=== PATIENT | female | born 1970 | race Caucasian/White ===

== ENCOUNTER 2018-02-14 12:34 | Outpatient (REF) | payer BC, SELFPAY ==
--- NOTE | 2018-02-14 11:30 | PAPFT_PTH ---
PATIENT: Kelley Tomas LOC: [facility] U#:[id number] AGE/SX: 47/F ROOM: RE02/14/[address]: ADRIENNE Snider : 1970 BED: DIS: 02/14/2018 SPEC #: [id number] RECD: 02/14/18 13:02 STATUS: JUSTO FUCHS #: [id number] TIMOTHY: 02/14/18 11:[address]: Yasemin Barbosa DEPT: [facility] Cytology RECD BY: Inga Livingston ENTERED: 02/14/18 13:02 SP TYPE: PAPFT SHEILA DR: Kodak Jauregui MD Tissues: 1 - CX/ENDOCX FOR PAP SMEARS Procedures: PAP THIN PREP/UVM Screening HPV DNA PROBE Comments: [id number]
== END 2018-02-14 12:54 ==
LOC: LBN 12:34
PROVIDERS: PCP Family Medicine; Visit Provider Nurse Practitioner Family
DX: Z12.4 Encounter for screening for malignant neoplasm of cervix (principal); Z11.51 Encounter for screening for human papillomavirus (HPV)
CPT/HCPCS: 88142; 87624

== ENCOUNTER 2018-03-07 00:23 | Outpatient (CLI) | payer BC, SELFPAY ==
--- NOTE | 2018-03-07 12:20 | DI.MAMMO_ITS ---
SYMPTOM/DIAGNOSIS: SCREENING, Z12.31 PREVENTATIVE CARE Z00.00 MAMMOGRAMS: Mammograms were interpreted according to the usual protocol including computer analysis with CAD system, tomosynthesis and C view imaging. Comparison with prior examinations. No masses or microcalcifications are seen. There is nothing to suggest malignancy. Breast density B. IMPRESSION: Category 1-B. Negative mammogram. Routine screening is recommended. [facility] ASSESSMENT OF FINDINGS: Negative. Category 1. Patient will receive a letter notifying them of these results. BI-RADS category B. There are scattered areas of fibroglandular density.
== END 2018-03-07 00:43 ==
PROVIDERS: PCP Family Medicine; Visit Provider Nurse Practitioner Family
DX: Z00.00 Encounter for general adult medical examination without abnormal findings (principal); Z12.31 Encounter for screening mammogram for malignant neoplasm of breast
CPT/HCPCS: 77063; 77067

== ENCOUNTER 2019-07-06 01:44 | Outpatient (CLI) | payer OTHER, SELFPAY ==
--- NOTE | 2019-07-06 08:30 | DI.MAMMO_ITS ---
EXAM: MG MAMMO SCREENING CLINICAL HISTORY: Screening,z12.39 TECHNIQUE: Bilateral full field digital CC and MLO mammographic images were obtained with 3D tomosyn thesis and utilizing computer aided detection (CAD). COMPARISON: Available for comparison. FINDINGS: Masses/Architectural Distortion: There is an asymmetric density in the outer left breast with a quest ion of architectural distortion. No associated microcalcifications are seen. Microcalcifications: No suspicious pleomorphic-type are seen. Skin Thickening/Nipple Retraction: None. IMPRESSION: 1. Asymmetric density in the outer left breast seen on the craniocaudad view. 2. Further evaluation with a spot compression view and ultrasound are recommended. BI-RADS Cat 0 - Assessment Incomplete: Need additional imaging evaluation Breast Density - Category B - Scattered areas of fibroglandular density A negative radiographic report should not delay biopsy if a dominant or clinically suspicious mass is present. Up to ten percent of cancers are not identified on mammography. A negative report may reinforce clinical impression. Adenosis and dense breasts may obscure an underlying neoplasm. False positive reports average 6 to 10%. Patient will receive a letter notifying them of these results.
== END 2019-07-06 02:04 ==
PROVIDERS: PCP Family Medicine; Visit Provider Nurse Practitioner Family
DX: Z12.31 Encounter for screening mammogram for malignant neoplasm of breast (principal); R92.8 Other abnormal and inconclusive findings on diagnostic imaging of breast
CPT/HCPCS: 77063; 77067

== ENCOUNTER 2019-07-12 03:01 | Outpatient (CLI) | payer OTHER, SELFPAY ==
--- NOTE | 2019-07-12 10:19 | DI.MAMMO_ITS ---
EXAM: MG MAMMO SCREEN CALL BACK UNI CLINICAL HISTORY: F/U MAMMO, ASYMMETRIC DENSITY LT BREAST TECHNIQUE: Spot compression CC and MLO mammographic images were obtained with 3D tomosynthesis were performed COMPARISON: 2011 through 06 July 2019. FINDINGS: Masses/Architectural Distortion: None seen. Microcalcifications: No suspicious pleomorphic-type are seen. Skin Thickening/Nipple Retraction: None. IMPRESSION: 1. No significant interval change with no specific features of malignancy noted. 2. Unless there is more urgent need, screening mammography is recommended, as per [employer] guidelines. BI-RADS Cat 1 - Negative Breast Density - Category B - Scattered areas of fibroglandular density A negative radiographic report should not delay biopsy if a dominant or clinically suspicious mass is present. Up to ten percent of cancers are not identified on mammography. A negative report may reinforce clinical impression. Adenosis and dense breasts may obscure an underlying neoplasm. False positive reports average 6 to 10%. Patient will receive a letter notifying them of these results.
== END 2019-07-12 03:21 ==
PROVIDERS: PCP Family Medicine; Visit Provider Nurse Practitioner Family
DX: Z12.31 Encounter for screening mammogram for malignant neoplasm of breast (principal); R92.8 Other abnormal and inconclusive findings on diagnostic imaging of breast; N64.59 Other signs and symptoms in breast
CPT/HCPCS: 77063; 77067

== ENCOUNTER 2020-07-29 10:13 | Outpatient (REF) | payer BC, SELFPAY ==
--- NOTE | 2020-07-29 10:00 | PAPFT_PTH ---
PATIENT: Kelley Tomas LOC: [facility] U#:[id number] AGE/SX: 49/F ROOM: RE07/29/[address]: ADRIENNE Snider : 1970 BED: DIS: 07/29/2020 SPEC #: [id number] RECD: 07/29/20 18:15 STATUS: JUSTO RETyrell #: [id number] TIMOTHY: 07/29/20 10:[address]: Yasemin Barbosa DEPT: [facility] Cytology RECD BY: Inga Livingston ENTERED: 07/29/20 18:15 SP TYPE: PAPFT OTHR DR: ADRIENNE Chacon Tissues: 1 - CX/ENDOCX FOR PAP SMEARS Procedures: PAP THIN PREP/UVM Screening HPV DNA PROBE Comments: [id number]
== END 2020-07-29 10:14 | disposition home or self-care (01) ==
LOC: LBN 10:13
PROVIDERS: PCP Nurse Practitioner Family; Visit Provider Nurse Practitioner Family
DX: Z12.4 Encounter for screening for malignant neoplasm of cervix (principal); Z11.51 Encounter for screening for human papillomavirus (HPV); R87.810 Cervical high risk human papillomavirus (HPV) DNA test positive
CPT/HCPCS: 88142; 87624

== ENCOUNTER 2020-08-06 02:12 | Outpatient (CLI) | payer BC, SELFPAY ==
--- NOTE | 2020-08-06 11:51 | DI.MAMMO_ITS ---
EXAM: MAMMO SCREENING CLINICAL HISTORY: screening,Z12.39 TECHNIQUE: Mammograms were interpreted according to the usual protocol including computer analysis w [employer] PTY CAD system, tomosynthesis and C-view imaging. COMPARISON: FINDINGS: The breasts are of moderate density with fairly symmetrical distribution of fibroglandular tissue. N o dominant mass or clumped microcalcification is identified in either breast. Current examination is compared with previous examinations including July 2019 and there has been no gross interval change in appearance in comparison with the prior studies. IMPRESSION: No specific evidence of malignancy at this time. Routine screening examinations are suggested at yea rly intervals in this age group according to the ACS ACR guidelines. BI-RADS Category 1 - Negative Breast Density - Category B - Scattered areas of fibroglandular density
== END 2020-08-06 02:32 ==
PROVIDERS: PCP Nurse Practitioner Family; Visit Provider Nurse Practitioner Family
DX: Z12.31 Encounter for screening mammogram for malignant neoplasm of breast (principal)
CPT/HCPCS: 77063; 77067

== ENCOUNTER 2021-06-19 19:53 | Outpatient (REF) | payer BC, SELFPAY | END 2021-06-19 19:54 | disposition home or self-care (01) | LOC: LBN 19:53 | PROVIDERS: PCP Nurse Practitioner Family; Visit Provider Nurse Practitioner Family | DX: R30.0 Dysuria (principal) | CPT/HCPCS: 87086 ==

== ENCOUNTER 2021-07-31 10:33 | Outpatient (REF) | payer BC, SELFPAY ==
--- NOTE | 2021-07-31 09:15 | PAPFT_PTH ---
PATIENT: Kelley Tomas LOC: [facility] U#:[id number] AGE/SX: 50/F ROOM: RE07/31/[address]: ADRIENNE Snider : 1970 BED: DIS: 07/31/2021 SPEC #: [id number] RECD: 07/31/21 12:45 STATUS: JUSTO REQ #: [id number] TIMOTHY: 07/31/21 09:[address]: Yasemin Barbosa DEPT: [facility] Cytology RECD BY: Inga Livingston ENTERED: 07/31/21 12:45 SP TYPE: PAPFT OTHR DR: ADRIENNE Chacon Tissues: 1 - CX/ENDOCX FOR PAP SMEARS Procedures: PAP THIN PREP/UVM Screening HPV DNA PROBE Comments: [id number]
== END 2021-07-31 10:34 | disposition home or self-care (01) ==
LOC: LBN 10:33
PROVIDERS: PCP Nurse Practitioner Family; Visit Provider Nurse Practitioner Family
DX: Z12.4 Encounter for screening for malignant neoplasm of cervix (principal); Z11.51 Encounter for screening for human papillomavirus (HPV); Z87.42 Personal history of other diseases of the female genital tract; Z97.5 Presence of (intrauterine) contraceptive device
CPT/HCPCS: 88142; 87624

== ENCOUNTER → 2021-08-29 01:03 | Outpatient (CLI) | payer BC, SELFPAY ==
--- NOTE | 2021-08-29 08:30 | DI.MAMMO_ITS ---
Exam(s) MAMMO SCREENING EXAM: MAMMO SCREENING CLINICAL HISTORY: screening TECHNIQUE: Mammograms were interpreted according to the usual protocol including computer analysis w [employer] CAD system, tomosynthesis and C-view imaging. COMPARISON: 2012 through 2020 FINDINGS: The breasts are composed of scattered fibroglandular densities, Breast Density category B. No suspicious masses or suspicious microcalcifications are seen. No skin thickening or abnormal axillary lymph nodes are seen. There has been no significant change from prior exams. IMPRESSION: BI-RADS Category 1, Negative mammogram Yearly screening mammography is recommended. Breast Density - Category B, scattered fibroglandular densities. A negative radiographic report should not delay biopsy if a dominant or clinically suspicious mass is present. Up to ten percent of cancers are not identified on mammography. A negative report may reinforce clinical impression. Adenosis and dense breasts may obscure an underlying neoplasm. False positive reports average 6 to 10%. Patient will receive a letter notifying them of these results.
== END ==
PROVIDERS: PCP Nurse Practitioner Family; Visit Provider Nurse Practitioner Family
DX: Z12.31 Encounter for screening mammogram for malignant neoplasm of breast (principal)
CPT/HCPCS: 77063; 77067

== ENCOUNTER 2023-02-24 15:01 | Outpatient (CLI) | payer BC, SELFPAY ==
--- OUTSIDE RECORDS SUMMARY | 2023-02-24 15:03 | XMS_ITS | Continuity of Care Document ---
Author Name Unknown Organization [facility] Address [address] [place] [id number] Care Team Providers Care [employer] Name Role Phone YURIY FAUTS, RAVINDER Hoffmann Primary Care Physician Encounter [facility] FIN NBR [id number] Date(s): 02/03/23 - 02/03/[address] [phone] [phone] Discharge Disposition: Home or Self Care Attending Physician: RAVINDER YAN MD Admitting Physician: RAVINDER YAN MD Referring Physician: RAVINDER YAN MD Assessment and Plan Future Scheduled Tests Laboratory* Comprehensive Metabolic Panel 02/03/23 * Thyroid Stimulating Hormone 02/03/23 Results Laboratory List Name Date CBC w/ Diff 02/03/23 Comprehensive Metabolic Panel 02/03/23 Hgb A1c 02/03/23 Thyroid Stimulating Hormone 02/03/23 Automated Diff 02/03/23 Most recent to oldest [Reference Range]: 1 WBC [4.8-10.8 K/mcL] 4.8 K/mcL (02/03/23 10:14 AM) RBC [4.20-5.40 Million/mcL] 4.44 Million /mcL (02/03/23 10:14 AM) Neutro Auto [42.2-75.2 %] 41.4 % *LOW* (02/03/23 10:14 AM) Lymph Auto [20.5-51.1 %] 41.4 % (02/03/23 10:14 AM) [place] Auto [1.7-9.3 %] 7.1 % (02/03/23 10:14 AM) Basophil Auto [0.0-0.8 %] 1.3 % *HI* (02/03/23 10:14 AM) BUN [8-26 mg/dL] 14 mg/dL (02/03/23 10:14 AM) Glucose Level [74-106 mg/dL] 95 mg/dL (02/03/23 10:14 AM) Potassium Level [3.5-5.1 mmol/L] 4.5 mmo l/L (02/03/23 10:14 AM) Baso Absolute [0.0-0.2 K/mcL] 0.1 K/mcL (02/03/23 10:14 AM) MCV [81.0-99.0 fL] 95.3 fL (02/03/23 10:14 AM) AST [15-41 IntlUnit/L] 17 IntlUnit/L (02/03/23 10:14 AM) ALT [14-54 IntlUnit/L] 21 IntlUnit/L (02/03/23 10:14 AM) MCHC [32.0-36.0 g/dL] 32.9 g/dL (02/03/23 10:14 AM) Osmolality [275-295 mOsm/kg] 276 mOsm/kg (02/03/23 10:14 AM) Sodium Level [134-143 mmol/L] 138 mmol/L (02/03/23 10:14 AM) Lymph Absolute [1.2-3.4 K/mcL] 2.0 K/mcL (02/03/23 10:14 AM) Hct [37.0-47.0 %] 42.3 % (02/03/23 10:14 AM) Calcium Level [8.9-10.3 mg/dL] 9.4 mg/dL (02/03/23 10:14 AM) [place] Absolute [0.1-0.6 K/mcL] 0.3 K/mcL (02/03/23 10:14 AM) Albumin Level [3.5-5.0 g/dL] 4.1 g/dL (02/03/23 10:14 AM) Protein Total [6.5-8.1 g/dL] 7.3 g/dL (02/03/23 10:14 AM) MCH [27.0-31.0 pg] 31.3 pg *HI* (02/03/23 10:14 AM) Neutro Absolute [1.4-6.5 K/mcL] 2.0 K/mc L (02/03/23 10:14 AM) Bilirubin Total [0.2-1.2 mg/dL] 0.6 mg/d L (02/03/23 10:14 AM) Hgb [12.0-16.0 g/dL] 13.9 g/dL (02/03/23 10:14 AM) Alk Phos [38-130 IntlUnit/L] 69 IntlUnit /L (02/03/23 10:14 AM) MPV [7.4-10.4 fL] 9.0 fL (02/03/23 10:14 AM) Platelets [130-400 K/mcL] 290 K/mcL (02/03/23 10:14 AM) CO2 [22-32 mmol/L] 28 mmol/L (02/03/23 10:14 AM) Eos Absolute [0.0-0.2 K/mcL] 0.4 K/mcL *HI* (02/03/23 10:14 AM) TSH [0.45-5.33 mcIntlUnit/mL] 1.77 mcInt lUnit/mL (02/03/23 10:14 AM) eAvg Glucose [70-105 mg/dL] 103 mg/dL (02/03/23 10:14 AM) Chloride Level [98-111 mmol/L] 102 mmol/ L (02/03/23 10:14 AM) RDW-CV [11.5-14.5 %] 12.3 % (02/03/23 10:14 AM) A/G Ratio [1.0-2.5 g/dL] 1.3 g/dL (02/03/23 10:14 AM) BUN/Creat Ratio [8.0-20.0] 17.9 (02/03/23 10:14 AM) Globulin [2.3-3.5 g/dL] 3.2 g/dL (02/03/23 10:14 AM) Imm Gran Absolute [0.00-0.02 K/mcL] 0.01 K/mcL (02/03/23 10:14 AM) Imm Gran Auto [0.0-0.5 %] 0.2 % (02/03/23 10:14 AM) Hgb A1c Percent [4.0-6.0 %] 5.2 % (02/03/23 10:14 AM) .Hb 15.1 g/dL *NA* (02/03/23 10:14 AM) .Hgb A1c 0.5 g/dL *NA* (02/03/23 10:14 AM) Creatinine Level [0.44-1.00 mg/dL] 0.78 mg/dL (02/03/23 10:14 AM) Anion Gap [3.0-12.0] 8.0 (02/03/23 10:14 AM) Eos, Auto [0.00-3.00 %] 8.60 % *HI* (02/03/23 10:14 AM) eGFR CKD-EPI [>=60 mL/min/1.73 m2] 92 mL /min/1.73 m2 (02/03/23 10:14 AM) Patient Care team information Care Team Personnel Name: YURIY FAUST, RAVINDER Hoffmann Position: No Access Member Role: Primary Care Physician Address: Address: [address] [place] [phone]
--- OUTSIDE RECORDS SUMMARY | 2023-02-24 15:03 | XMS_ITS | Patient Health Record ---
Author Name Unknown Organization [facility] Visit Address [address], [address] [place] [address] Care Team Providers Care Test Fixture Assembler Name Role Phone Naila Yan Primary Care Provider ALLERGIES No Known Allergies RESULTS Component Value Reference Range Notes CBC, WITH AUTO DIFF Reviewed date:02/04/2023 08:39:37 AM Interpretation: Performing Lab: Notes/Report: COMPREHENSIVE METABOLIC PROF ILE Reviewed date:02/04/2023 08:39:37 AM Interpretation: Performing Lab: Notes/Report: Alk Phos 69 38-130 IntlUnit/L Albumin Level 4.1 3.5-5.0 g/dL Anion Gap 8.0 3.0-12.0 BUN/Creat Ratio 17.9 8.0-20.0 Osmolality 276 275-295 mOsm/kg A/G Ratio 1.3 1.0-2.5 g/dL Globulin 3.2 2.3-3.5 g/dL GLYCOHEMOGLOBIN A1C Reviewed date:02/04/2023 08:39:37 AM Interpretation: Performing Lab: Notes/Report: Hgb A1c Percent 5.2 4.0-6.0 % TSH Reviewed date:02/04/2023 08:39:37 AM Interpretation: Performing Lab: Notes/Report: TSH 1.77 0.45-5.33 mcIntlUnit/mL - Ordering Provider: NAILA YAN REASON FOR REFERRAL No Information MEDICATIONS Medication SIG (Take, Route, Frequency, Duration) Notes Start Date End Date Status Losartan Potassium-HCTZ 100-25 MG 1 tablet Orally Once a day in the morning for 30 days 02/03/2023 Activ e Flonase Allergy Relief 50 MCG/ACT 1 spray in each nostril Nasally once a day prn for 30 days Active Tika Allergy 60 MG 1 tablet Orally Twice a day Active Ibuprofen 400 MG 1 tablet with food o r milk as needed Orally Three times a day prn Active Semaglutide-Weight Management 0.25 MG/0.5ML 0.5 mL Subcutaneous once a week for 30 days 02/04/2023 Active IMMUNIZATIONS Vaccine Route Administration Date Status Comme nts Fluarix Quadrivalent Unknown 02/03/2023 Administered SOCIAL HISTORY Tobacco Use: Social History Observation Description Date Details (start date - stop date) Never Smoker NA - NA Sex Assigned At : Social History Observation Description Sex Assigned At Unknown Tobacco Use/Smoking Question Answer Notes Are you a nonsmoker Alcohol Screen Question Answer Notes Did you have a drink contain ing alcohol in the past year? Yes How often did you have a dri nk containing alcohol in the past year? 2 to 3 times a week (3 points) How many drinks did you have on a typical day when you were drinking in the past year? 3 or 4 drinks (1 point) Points 4 Interpretation Positive PROBLEMS Problem Type ICD Code Onset Dates Problem Status W/U Status Risk SNOMED Code Notes Problem Morbid (severe) obesity due to excess calories (E66.01) Active confirmed Morbid obesity (disorder) (700587516) Problem Essential (primary) hypertension (I10) Active confirmed Essential hypertension (63129890) VITAL SIGNS Heart Rate 72 /min 02/03/2023 Blood pressure diastolic 95 mm Hg 02/03/2023 Height 68.75 in 02/03/2023 Blood pressure systolic 142 mm Hg 02/03/2023 Weight 242 lbs 02/03/2023 BMI 35.99 kg/m2 02/03/2023 Encounters Encounter Location Date Provider Diagnosis [facility] [address] [place], [place] [id number] 02/03/2023 Naila Yan Essential (primary) hypertension I10 ; Encounter for general adult medical examination with abnormal findings Z00.01 ; Morbid (severe) obesity due to excess calories E66.01 ; Plantar fascial fibromatosis M72.2 and Encounter for immunization Z23 [facility] [address] [place], [place] [id number] 05/05/2022 Naila Yan Low back pain, unspecified M54.50 [facility] [address] [place], [place] [id number] 01/26/2023 Naila Yan Essential (primary) hypertension I10 [facility] [address] [place], [place] [id number] 02/04/2023 Naila Yan ASSESSMENTS Encounter Date Diagnosis Assessment Notes Treatment Notes Treatment Clinical Notes 05/05/2022 Low back pain, unspecified (ICD-10 - M54.50) suspect muscle strain Ok to continue tylenol/ibuprofen. Can also use heat, topical analgesics. If worsening should reevaluate. 01/26/2023 Essential (primary) hypertension (ICD-10 - I10) 02/03/2023 Essential (primary) hypertension (ICD-10 - I10) Continues to be elevated. Discussed adding additional medication and potential risks/benefits. Will add hctz. Naila Yan 02/03/2023 12:12:49 PM > 02/03/2023 Encounter for general adult medical examination with abnormal findings (ICD-10 - Z00.01) need to schedule appt with gynecology. 02/03/2023 Morbid (severe) obesity due to excess calories (ICD-10 - E66.01) Discussed diet and exercise recommendations. Discussed medications to aid in weight loss including semaglutide, metformin or buproprion. Will check blood sugars which may direct options. 02/03/2023 Plantar fascial fibromatosis (ICD-10 - M72.2) 02/03/2023 Encounter for immunization (ICD-10 - Z23) PLAN OF TREATMENT Pending Test Test Name Order Date Urinalysis, Complete 05/05/2022 Insurance Providers Payer Name Payer Address Payer Phone Subscriber Number Group Number Insured Name Patient Relationship to Insured Coverage Start Date Coverage End Date [facility] [address] [place], [place] [id number] Tomas Kelley Self - patient is the insured 2 MEDICAL (GENERAL) HISTORY Medical History History ICD Code seasonal allergies essential hypertension
[2023-02-25 10:12] LABS: FSH 44.6 mIU/mL (See Note)
== END 2023-02-24 15:02 | disposition home or self-care (01) ==
LOC: LBO 15:01
PROVIDERS: Visit Provider Obstetrics & Gynecology
DX: N95.1 Menopausal and female climacteric states (principal)
CPT/HCPCS: 36415; 83001

== ENCOUNTER → 2023-02-24 15:06 | Outpatient (CLI) | payer BC, SELFPAY ==
--- NOTE | 2023-02-24 14:00 | DI.MAMMO_ITS ---
Exam(s) MAMMO SCREENING EXAM: MAMMO SCREENING CLINICAL HISTORY: screening. TECHNIQUE: Bilateral full field digital CC and MLO mammographic images were obtained with 3D tomosyn thesis and utilizing computer aided detection (CAD). COMPARISON: Prior mammograms were reviewed. FINDINGS: There are no new findings in the right breast. In the left breast on 3D MLO imaging there is a dumbbell-shaped nodular density now evident measuring 9 x 4 millimeters and located 6 cm in from the nipple on the MLO view. There are no malignant-appearing microcalcification groups in this region or elsewhere in either [address]. There is no significant architectural distortion nor skin thickening-retraction. IMPRESSION: 1. No radiographic evidence of malignancy in the right breast. 2. Left breast asymmetric hrgdgeu-brqdyupa-eqehrw nodule measuring 9 x 4 mm on the MLO 3D views. Rec ommend spot compression MLO view and ultrasound of the left breast. BI-RADS Category 0 - Assessment Incomplete: Need additional imaging evaluation Breast Density - Category B - Scattered areas of fibroglandular density Breast density Category C or D implies that the patient has dense breast tissue. Dense breast tissue can make it harder to find cancer on a mammogram. Dense breast tissue is also associated with an incr eased risk of breast cancer. This information about the result of the mammogram report was provided to the patient to raise their awareness. Use this report when you speak with the patient about their risks for breast cancer, which includes their family history. At that time, you may recommend additional screening tests (Ultrasoun d or MRI) as these tests may add significant information. A negative radiographic report should not delay biopsy if a dominant or clinically suspicious mass is present. Up to ten percent of cancers are not identified on mammography. A negative report may reinforce clinical impression. Adenosis and dense breasts may obscure an underlying neoplasm. False positive reports average 6 to 10%. Patient will receive a letter notifying them of these results.
== END ==
PROVIDERS: Visit Provider Obstetrics & Gynecology
DX: Z12.31 Encounter for screening mammogram for malignant neoplasm of breast (principal); R92.8 Other abnormal and inconclusive findings on diagnostic imaging of breast
CPT/HCPCS: 77063; 77067

== ENCOUNTER → 2023-03-02 02:23 | Outpatient (CLI) | payer BC, SELFPAY ==
--- NOTE | 2023-03-02 | DI.US_ITS ---
Exam(s) MG MAMMO SCREEN CALL BACK UNI US BREAST LT LIMITED EXAM: MG MAMMO SCREEN CALL BACK UNI and U/S breast LT limited CLINICAL HISTORY: F/U MAMMO, R92.8, NODULAR DENSITY. TECHNIQUE: Craniocaudal and mediolateral oblique Full Field Digital Mammography views of the left br east with Computer Aided Diagnosis followed by Tomosynthesis and limited left breast ultrasound. COMPARISON: Comparison is made with prior examinations. FINDINGS: Mammography/Tomosynthesis: Masses/Architectural Distortion: Additional views were obtained. There appears to be 2 well-circumsc ribed nodules adjacent to each other in the upper left breast on the MLO view. No areas of naval architect specialist ural distortion are seen. Microcalcifictions: No suspicious pleomorphic-type are seen. Skin Thickening/Nipple Retraction: None. Limited left breast US: Echotexture: Normal appearance of the glandular tissue. Shadowing: No suspicious foci. Cyst: None. Solid lesions: There is a round well-circumscribed hypoechoic nodule at the 1 o'clock position of the left breast 2 cm from the nipple. There is a 0.3 x 0.3 x 0.4 cm round anechoic nodule at the 3 o'cl ock position in the retroareolar region of the left breast. There is an adjacent 4 x 3 x 3 mm hypoec hoic nodule also in the retroareolar region. These nodules show benign characteristics sonographical ly. Ductal dilation: None. IMPRESSION: 1. No definite evidence of malignancy is noted. 2. A six-month follow-up right mammogram is requested for re-evaluation. 3. The findings were discussed with the patient on the date of the examination. BI-RADS Category 3 - 6 month - Probably Benign Finding: Recommend follow-up imaging in 6 months Breast Density - Category B - Scattered areas of fibroglandular density Breast density Category C or D implies that the patient has dense breast tissue. Dense breast tissue can make it harder to find cancer on a mammogram. Dense breast tissue is also associated with an incr eased risk of breast cancer. This information about the result of the mammogram report was provided to the patient to raise their awareness. Use this report when you speak with the patient about their risks for breast cancer, which includes their family history. At that time, you may recommend additional screening tests (Ultrasoun d or MRI) as these tests may add significant information. A negative radiographic report should not delay biopsy if a dominant or clinically suspicious mass is present. Up to ten percent of cancers are not identified on mammography. A negative report may reinforce clinical impression. Adenosis and dense breasts may obscure an underlying neoplasm. False positive reports average 6 to 10%. Patient will receive a letter notifying them of these results.
== END ==
PROVIDERS: Visit Provider Obstetrics & Gynecology
DX: Z12.31 Encounter for screening mammogram for malignant neoplasm of breast (principal); N63.21 Unspecified lump in the left breast, upper outer quadrant
CPT/HCPCS: 76642; 77063; 77067

== ENCOUNTER → 2023-09-01 04:41 | Outpatient (CLI) | payer OTHER, SELFPAY ==
--- NOTE | 2023-09-01 08:00 | DI.US_ITS ---
Exam(s) US BREAST LT COMPLETE MG MAMMO DIAGNOSTIC UNI EXAM: MG MAMMO DIAGNOSTIC UNI-LEFT AND COMPLETE LEFT BREAST ULTRASOUND. CLINICAL HISTORY: 6-month follow-up LT,R92.8,lt breast nodule. TECHNIQUE: Unilateral BREAST CC AND MLO mammographic images were obtained with 3D tomosynthesis tech [employer] and utilizing computer aided detection (CAD). COMPLETE LEFT BREAST ULTRASOUND was also performed including all 4 quadrants as well as the axillary region. COMPARISON: Prior mammograms were reviewed, the most recent being January 2023.. Prior ultrasound of January 2023 was also reviewed. FINDINGS: DIAGNOSTIC LEFT BREAST MAMMOGRAM: The previously described small nodular density is actually less evident on the present study. There are no new spiculated masses nor malignant-appearing microcalcification groups in the left breast. N o new architectural distortion or skin thickening-traction. We proceeded with ultrasound.. COMPLETE LEFT BREAST ULTRASOUND: The previously described ultrasound findings at the 1 o'clock and 3 o'clock positions are no longer s een. There is no evidence of solid or significant cystic lesions in all 4 quadrants of the left petra [address]. Graph scanning of the left axilla is negative for adenopathy. IMPRESSION: No radiographic evidence of malignancy Negative complete left breast ultrasound Appropriate follow-up is to keep this patient yearly screening mammogram schedule. The patient was informed of the findings and follow-up recommendations by myself prior to leaving the department today. BI-RADS Category 2 - Benign Findings Breast Density - Category B - Scattered areas of fibroglandular density Breast density Category C or D implies that the patient has dense breast tissue. Dense breast tissue can make it harder to find cancer on a mammogram. Dense breast tissue is also associated with an incr eased risk of breast cancer. This information about the result of the mammogram report was provided to the patient to raise their awareness. Use this report when you speak with the patient about their risks for breast cancer, which includes their family history. At that time, you may recommend additional screening tests (Ultrasoun d or MRI) as these tests may add significant information. A negative radiographic report should not delay biopsy if a dominant or clinically suspicious mass is present. Up to ten percent of cancers are not identified on mammography. A negative report may reinforce clinical impression. Adenosis and dense breasts may obscure an underlying neoplasm. False positive reports average 6 to 10%. Patient will receive a letter notifying them of these results.
== END ==
PROVIDERS: Visit Provider Obstetrics & Gynecology
DX: R92.8 Other abnormal and inconclusive findings on diagnostic imaging of breast (principal); Z12.31 Encounter for screening mammogram for malignant neoplasm of breast
CPT/HCPCS: 76642; 77061; 77065; G0279

== ENCOUNTER 2024-03-07 01:23 | Outpatient (CLI) | payer OTHER, SELFPAY ==
--- NOTE | 2024-03-07 08:42 | DI.MAMMO_ITS ---
Exam(s) MAMMO SCREENING EXAM: MAMMO SCREENING CLINICAL HISTORY: screening,z12.39 TECHNIQUE: Bilateral full field digital CC and MLO mammographic images were obtained with 3D tomosyn thesis and utilizing computer aided detection (CAD). COMPARISON: Available for comparison. FINDINGS: Masses/Architectural Distortion: None seen. Microcalcifications: No suspicious pleomorphic-type are seen. Skin Thickening/Nipple Retraction: None. IMPRESSION: 1. No significant interval change with no specific features of malignancy noted. 2. Unless there is more urgent need, screening mammography is recommended, as per [employer] guidelines. BI-RADS Category 1 - Negative Breast Density - Category B - Scattered areas of fibroglandular density Breast density category C or D implies that the patient has dense breast tissue. Dense breast tissue is very common and is not abnormal but dense breast tissue can make it harder to find cancer on a ma mmogram. Also, dense breast tissue may increase their breast cancer risk. This information about the result of the mammogram report was provided to the patient to raise their awareness. Use this report when you speak with the patient about their risks for breast cancer, which includes their family hist ory. At that time, you may recommend for more screening tests (Ultrasound or MRI) as they might be us eful based on their risk. A negative radiographic report should not delay biopsy if a dominant or clinically suspicious mass is present. Up to ten percent of cancers are not identified on mammography. A negative report may reinforce clinical impression. Adenosis and dense breasts may obscure an underlying neoplasm. False positive reports average 6 to 10%. Patient will receive a letter notifying them of these results.
== END 2024-03-07 01:43 ==
PROVIDERS: PCP Internal Medicine; Visit Provider Obstetrics & Gynecology
DX: Z12.31 Encounter for screening mammogram for malignant neoplasm of breast (principal); R92.323 Mammographic fibroglandular density, bilateral breasts
CPT/HCPCS: 77063; 77067

== ENCOUNTER → 2025-03-16 03:05 | Outpatient (CLI) | payer OTHER, SELFPAY ==
--- NOTE | 2025-03-16 10:27 | DI.MAMMO_ITS ---
Exam(s) MAMMO SCREENING EXAM: MAMMO SCREENING CLINICAL HISTORY: screening. TECHNIQUE: Bilateral full field digital CC and MLO mammographic images were obtained with 3D tomosynthesis and utilizing computer aided detection (CAD). COMPARISON: Prior mammograms were reviewed. FINDINGS: There has been no significant change in the appearance and distribution of the fibroglandular tissue. There are no new spiculated masses nor malignant appearing microcalcification groups. There is no significant architectural distortion nor skin thickening-retraction. IMPRESSION: No radiographic evidence of malignancy. BI-RADS Category 1 - Negative Breast Density - Category B - There are scattered areas of fibroglandular density. Breast density Category C or D implies that the patient has dense breast tissue. Dense breast tissue can make it harder to find cancer on a mammogram. Dense breast tissue is also associated with an increased risk of breast cancer. This information about the result of the mammogram report was provided to the patient to raise their awareness. Use this report when you speak with the patient about their risks for breast cancer, which includes their family history. At that time, you may recommend additional screening tests (Ultrasound or MRI) as these tests may add significant information. A negative radiographic report should not delay biopsy if a dominant or clinically suspicious mass is present. Up to ten percent of cancers are not identified on mammography. A negative report may reinforce clinical impression. Adenosis and dense breasts may obscure an underlying neoplasm. False positive reports average 6 to 10%. Patient will receive a letter notifying them of these results.
== END ==
LOC: DI 03:05
PROVIDERS: PCP Internal Medicine; Visit Provider Obstetrics & Gynecology
DX: Z12.31 Encounter for screening mammogram for malignant neoplasm of breast (principal); R92.323 Mammographic fibroglandular density, bilateral breasts
CPT/HCPCS: 77063; 77067